=== PATIENT | female | born 1960 | race Caucasian/White ===

== ENCOUNTER → 2022-10-21 | Outpatient (CLI) | payer BC, SELFPAY ==
--- NOTE | 2022-10-21 | DI.RAD.S_ITS ---
PROCEDURE: XR HIP W PEL IF DONE LT 2V INDICATIONS: Pain in left hip TECHNIQUE: 2 views of the hip were acquired. COMPARISON: None. FINDINGS: Bones: No fractures or dislocations. No suspicious bony lesions. The visualized pelvic ring appears intact. Soft tissues: No suspicious soft tissue calcifications or masses. IMPRESSION: Normal pelvis and left hip radiographs Approved by: Sean Lopes M.D. on 10/21/2022 at 18:11
== END ==
LOC: RAD 12:40
PROVIDERS: Referring Provider Naturopath; Visit Provider Naturopath
DX: M25.552 Pain in left hip (principal)
CPT/HCPCS: 73502